=== PATIENT | female | born 2000 | race Caucasian/White ===

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

== ENCOUNTER 2021-11-21 21:10 | Inpatient (IN) ==
[2021-11-21 21:42] LABS: Bacteria,Urine Few per hpf (None-Few); Bilirubin,Urine Negative (Negative); Blood,Urine Negative (Negative); Clarity,Urine Clear (Clear); Color,Urine Light-Yellow (Yellow); Glucose,Urine (UA) Normal (Normal); Ketones,Urine Negative (Negative); Leukocyte Esterase,Urine Trace (Negative); Mucus,Urine Few per lpf (None-Few); Nitrite,Urine Negative (Negative); PH,Urine 7.5 pH Units (5.0-8.0); Protein,Urine Negative (Neg-Trace); RBC,Urine 0-3 per hpf (0-3); Specific Gravity,Urine 1.021 (1.010-1.025); Squamous Epithelial Cell,Urine Few per hpf (None-Few); Urobilinogen,Urine Normal (Normal); WBC,Urine 0-3 per hpf (0-3)
[2021-11-21 21:50] LABS: Amphetamine Screen,Urine Negative ng/mL (Cutoff=1000); Barbiturate Screen,Urine Negative ng/mL (Cutoff=200); Benzodiazepines Screen,Urine Negative ng/mL (Cutoff=200); Cannabinoid Screen,Urine Negative ng/mL (Cutoff = 50); Cocaine Screen,Urine Negative ng/mL (Cutoff= 300); Opiate Screen,Urine Negative ng/mL (Cutoff=300); Phencyclidine Screen,Urine Negative ng/mL (Cutoff=25)
[2021-11-21 22:00] LABS: Basophils % 0.3 %; Eosinophils # 0.1 K/mcL (0.0-0.6); Eosinophils % 1.7 %; Hematocrit 37.4 % (35.3-44.9); Hemoglobin 11.9 g/dL (11.5-15.4); Immature Granulocytes % 0.3 % (0-4); Lymphocytes # 2.1 K/mcL (0.6-4.6); Lymphocytes % 27.4 %; Mean Corpuscular HGB Conc 31.8 g/dL (31.6-35.5); Mean Corpuscular Hemoglobin 28.5 pg (28.0-33.3); Mean Corpuscular Volume 89.5 fL (83.0-100.0); Mean Platelet Volume 10.4 fL (9.4-12.4); Monocytes # 0.7 K/mcL (0.0-1.3); Monocytes % 8.5 %; Neutrophils # 4.8 K/mcL (1.6-8.9); Platelet Count 250 K/mcL (140-400); Red Blood Count 4.18 M/mcL (3.82-4.97); Red Cell Distribution Width 13.7 % (11.5-14.5); Segmented Neutrophils % 61.8 %; White Blood Count 7.8 K/mcL (4.3-11.1)
[2021-11-21 22:20] LABS: Acetaminophen < 10 mcg/mL (10-20); BUN/Creatinine Ratio 17 (6-26); Blood Urea Nitrogen 10 mg/dL (6-20); Calcium 8.8 mg/dL (8.6-10.3); Carbon Dioxide 26 mEq/L (23-29); Chloride 109 mEq/L (98-107); Ethanol < 10 mg/dL (Less than 10); Glucose 118 mg/dL (70-105); Osmolality,Calculated 288 (280-300); Potassium 3.8 mEq/L (3.5-5.1); Salicylate < 2.5 mg/dL (15.0-30.0); Sodium 139 mEq/L (136-145)
[2021-11-21 23:01] LABS: Influenza A PCR Negative (Negative); Influenza B PCR Negative (Negative); Resp. Syncytial Virus PCR Negative (Negative)
[2021-11-21 23:20] LABS: SARS-CoV-2 by PCR (In House) Negative (Negative)
[2021-11-22] MEDS ORDERED: haloperidoL 5 MG TABLET PO PRN (01:44)
[2021-11-22] MEDS ORDERED: *HR* LORazepam 2 MG/ML VIAL IM PRN (01:44)
[2021-11-22] MEDS ORDERED: QUEtiapine Fumarate 25 MG TABLET PO PRN (01:44)
[2021-11-22] MEDS ORDERED: *HR* LORazepam 1 MG TABLET PO PRN (01:44)
[2021-11-22] MEDS ORDERED: hydrOXYzine pamoate 25 MG CAPSULE PO PRN (01:44)
[2021-11-22] MEDS ORDERED: Haloperidol Lactate 5 MG/ML VIAL IM PRN (01:44)
[2021-11-22] MEDS ORDERED: BuPROPion XL (24 HR) 150 MG TABLET PO SCH (10:00)
[2021-11-22] MEDS: Venlafaxine XR (24 HR) 75 MG CAP.ER.24H PO SCH (10:04)
[2021-11-22] MEDS: ARIPiprazole 5 MG TABLET PO SCH (10:04)
[2021-11-22] MEDS: Lithium Carbonate ER 300 MG TABLET.ER PO SCH ×2 (10:04→21:10)
[2021-11-22] MEDS: BuPROPion XL (24 HR) 150 MG TABLET PO SCH (10:06)
[2021-11-22] MEDS: Magnesium Oxide 400 MG TABLET PO SCH (10:32)
[2021-11-22] MEDS ORDERED: *HR* LORazepam 0.5 MG TABLET PO PRN (11:54)
[2021-11-22] MEDS: Melatonin 3 MG TABLET PO SCH (21:10)
[2021-11-22] MEDS: QUEtiapine Fumarate 25 MG TABLET PO SCH (21:10)
[2021-11-23] MEDS: BuPROPion XL (24 HR) 150 MG TABLET PO SCH (08:27)
[2021-11-23] MEDS: ARIPiprazole 5 MG TABLET PO SCH (08:28)
[2021-11-23] MEDS: Venlafaxine XR (24 HR) 75 MG CAP.ER.24H PO SCH (08:28)
[2021-11-23] MEDS: Magnesium Oxide 400 MG TABLET PO SCH (08:28)
[2021-11-23] MEDS: Lithium Carbonate ER 300 MG TABLET.ER PO SCH ×2 (10:14→20:21)
[2021-11-23] MEDS: QUEtiapine Fumarate 25 MG TABLET PO SCH (20:21)
[2021-11-23] MEDS: Melatonin 3 MG TABLET PO SCH (20:21)
[2021-11-24] MEDS: ARIPiprazole 5 MG TABLET PO SCH (09:34)
[2021-11-24] MEDS: Venlafaxine XR (24 HR) 75 MG CAP.ER.24H PO SCH (09:34)
[2021-11-24] MEDS: Lithium Carbonate ER 300 MG TABLET.ER PO SCH ×2 (09:35→20:32)
[2021-11-24] MEDS: BuPROPion XL (24 HR) 150 MG TABLET PO SCH (09:35)
[2021-11-24] MEDS: Magnesium Oxide 400 MG TABLET PO SCH (09:35)
[2021-11-24] MEDS: QUEtiapine Fumarate 25 MG TABLET PO SCH (20:31)
[2021-11-24] MEDS: Melatonin 3 MG TABLET PO SCH (20:31)
[2021-11-25] MEDS: Lithium Carbonate ER 300 MG TABLET.ER PO SCH (10:03)
[2021-11-25] MEDS: Magnesium Oxide 400 MG TABLET PO SCH (10:03)
[2021-11-25] MEDS: ARIPiprazole 5 MG TABLET PO SCH (10:03)
[2021-11-25] MEDS: Venlafaxine XR (24 HR) 75 MG CAP.ER.24H PO SCH (10:03)
[2021-11-25] MEDS: BuPROPion XL (24 HR) 150 MG TABLET PO SCH (10:04)
[2021-11-25 10:51] VITALS: BP 115/81; PULSE 87; TEMP 97.4; O2SAT 98
== END 2021-11-25 15:30 | disposition home or self-care (01) | DRG 885 ==
LOC: EMEROOARM 21:10 → 1ANU 11-22 02:03
PROVIDERS: ADMIT Psychiatry & Neurology Psychiatry; ATTEND Psychiatry & Neurology Psychiatry